=== PATIENT | female | born 1970 | race Asian ===

== ENCOUNTER 2017-10-26 10:01 | Outpatient (CLI) | payer OTHER | END 2017-10-26 10:02 | disposition home or self-care (01) | LOC: DTY/OP 10:01 | PROVIDERS: ATTEND Surgery | DX: E66.01 Morbid (severe) obesity due to excess calories (principal); E11.9 Type 2 diabetes mellitus without complications; G47.30 Sleep apnea, unspecified; Z98.84 Bariatric surgery status | CPT/HCPCS: 97802 ==

== ENCOUNTER 2017-10-28 15:52 | Outpatient (CLI) | payer OTHER | END 2017-10-28 15:53 | disposition home or self-care (01) | LOC: BICMAMMO 15:52 | PROVIDERS: ATTEND Family Medicine | DX: Z12.31 Encounter for screening mammogram for malignant neoplasm of breast (principal) | CPT/HCPCS: 77063; 77067 ==

== ENCOUNTER 2018-01-07 10:29 | Outpatient (CLI) | payer OTHER | END 2018-01-07 10:30 | disposition home or self-care (01) | LOC: LABBT 10:29 | PROVIDERS: ATTEND Surgery | DX: Z01.818 Encounter for other preprocedural examination (principal); E66.01 Morbid (severe) obesity due to excess calories | CPT/HCPCS: 93005; 93010 ==

== ENCOUNTER 2018-01-07 10:30 | Inpatient (IN) | payer OTHER ==
[2018-01-07 10:58] VITALS: BMI 38.5
[2018-01-12] MEDS ORDERED: Midazolam HCl 2 mg/2 ml Vial ONE ×2 (11:57→12:13)
[2018-01-12] MEDS ORDERED: Bupivacaine/Epinephrine 0.25% 30 ML VIAL ONE ×2 (12:01→12:15)
[2018-01-12] MEDS ORDERED: Fentanyl 250 MCG/5 ML VIAL ONE (12:13)
[2018-01-12] MEDS ORDERED: CEFAZOLIN/Water 2 GM/20 ML SYRINGE ONE (12:17)
[2018-01-12] MEDS ORDERED: Ondansetron HCl/PF 4 MG/2 ML Vial IVP PRN ×3 (13:42→16:19)
[2018-01-12] MEDS ORDERED: HYDROmorphone 2 MG/ML VIAL SLOW IVP PRN (13:42)
[2018-01-12] MEDS ORDERED: Ketorolac Tromethamine 30 MG/ML VIAL IVP PRN (13:42)
[2018-01-12] MEDS ORDERED: Promethazine HCl 25 MG/ML VIAL SLOW IVP PRN (13:42)
[2018-01-12] MEDS ORDERED: Promethazine HCl 25 MG/ML VIAL IM PRN ×3 (13:42→16:19)
[2018-01-12] MEDS ORDERED: Fentanyl 100 MCG/2 ML VIAL ONE (14:26)
[2018-01-12] MEDS ORDERED: Ketorolac Tromethamine 30 MG/ML VIAL ONE (14:26)
[2018-01-12] MEDS ORDERED: fentaNYL Citrate/PF 2,000 MCG in Sodium Chloride 0.9% 60 ML IV PRN (14:49)
[2018-01-12] MEDS ORDERED: diphenhydrAMINE 25 MG CAP PO PRN (14:49)
[2018-01-12] MEDS ORDERED: Naloxone HCl 0.4 mg/ml Vial IV PRN (14:49)
[2018-01-12] MEDS ORDERED: diphenhydrAMINE 50 MG/ML VIAL IM PRN (14:49)
[2018-01-12] MEDS ORDERED: Zolpidem Tartrate 5 MG TAB PO PRN (14:49)
[2018-01-12] MEDS ORDERED: diphenhydrAMINE 50 MG/ML VIAL IVP PRN ×2 (14:49→16:19)
[2018-01-12] MEDS ORDERED: Communication Order-Pharmacy FS SCH (15:00)
[2018-01-12] MEDS ORDERED: hydrALAZINE 20 MG/ML VIAL SLOW IVP PRN (16:19)
[2018-01-12] MEDS ORDERED: Dextrose 5% in Water 1,000 ML IV PRN (16:19)
[2018-01-12] MEDS ORDERED: Acetaminophen 1,000 MG in Premix Bag 1 BAG IVPB SCH (16:19)
[2018-01-12] MEDS ORDERED: Hydrocodone-Acetamin 15 ML UDCUP PO PRN (16:19)
[2018-01-12] MEDS ORDERED: Dextrose 50% Abboject 50 ML SYRINGE SLOW IVP PRN (16:19)
--- NOTE | 2018-01-12 16:41 | OP ---
DATE OF PROCEDURE: 01/12/2018 PREOPERATIVE DIAGNOSIS: 1. Morbid obesity with a body mass index of 38 2. Sleep apnea. POSTOPERATIVE DIAGNOSIS: 1. Morbid obesity with a body mass index of 38 2. Sleep apnea. PROCEDURE: Laparoscopic sleeve gastrectomy with Dawn staple line reinforcements and 38-[place] bougie . SURGEON: Dr. Buckley. ANESTHESIA: General. ESTIMATED BLOOD LOSS: 50 mL. COMPLICATIONS: None. FINDINGS: Normal postoperative EGD. PROCEDURE IN DETAIL: The patient was taken to the operating room and placed supine on the table. Af ter general anesthetic was obtained, the arms and legs are double strapped to bariatric table. OG tu be was used to decompress the stomach. Abdomen was prepped and draped in a sterile fashion. Left pinedo bcostal 5-mm Optiview trocar was placed in the usual fashion without injury and high flow pneumoperit oneum was obtained. Left and right abdominal 12-mm ports as well as a right subcostal 5-mm port were placed under direct visualization. A 5 mm incision was made at the xiphoid and the Nathansen's used to raise the liver off the GE junction. Short gastrics are taken down from mid body of stomach to t he left chase of the diaphragm using the LigaSure. They were taken down to a distance of 6 cm proxima l to the pylorus. The posterior fundus, angle of His and left chase completely dissected. There were some adhesions in this area from previous lap band. There were some adhesions on the anterior surfa ce of the stomach as well that were taken down and the stomach was taken down off the liver. The gas trohepatic ligament was opened to reveal no obvious hiatal hernia. OG tube was removed and a 38-Fren ch bougie was brought in and its tip left in the antrum of the stomach. Multiple loads of an [place] stapling device with Dawn staple line reinforcements were used to form the sleeve. The first was a green load fired up at a distance of 6 cm proximal to the pylorus angled up towards the incisura. Ca re was taken to avoid being too close to the incisura. Multiple loads were then fired up along the b ougie. Stomach was completely transected near the angle of His. Care was taken to avoid the lateral aspect of the GE junction. Stomach is removed from the left abdominal incision. This fascial defec t is closed using GraNee needle and 0 Vicryl tie. There is no bleeding in the left upper quadrant. A few areas on the staple line are clipped using laparoscopic clip device. The bougie was removed. EGD is brought down through the esophagus, stomach, to the level of duodenum without obstruction. Th ere was no stricture at the incisura. There is no involvement of the staple line at the GE junction. There is no evidence of air leakage or internal bleeding along the staple line. EGD scope was used to decompress the stomach, it was pulled and removed. Nathansen retractor was removed under direct visualization without bleeding. Pneumo-insufflation is let down. All ports are removed under direct visualization without bleeding. Vicryl was used to close the fascial defect from the left abdominal incisions. All incisions are irrigated and closed using 4-0 Monocryl and Dermabond. The patient wa s en route to recovery in stable condition. All instrument counts, needle counts, lap counts were co rrect.
[2018-01-12] MEDS: D5 1/2 NS w/20 mEq KCL 1,000 ML IV SCH (17:17)
[2018-01-12] MEDS: Acetaminophen 1,000 MG in Premix Bag 1 BAG IVPB SCH (20:23)
[2018-01-13] MEDS: Ketorolac Tromethamine 30 MG/ML VIAL IVP PRN ×2 (01:35→08:29)
[2018-01-13] MEDS: D5 1/2 NS w/20 mEq KCL 1,000 ML IV SCH ×2 (01:35→09:57)
[2018-01-13] MEDS ORDERED: Clopidogrel Bisulfate 75 MG TAB ONE (03:49)
[2018-01-13] MEDS: Acetaminophen 1,000 MG in Premix Bag 1 BAG IVPB SCH ×2 (03:53→09:57)
[2018-01-13 05:36] LABS: #Lymphocytes 1.5 thou/uL (1.20-3.40); #Monocytes 0.8 thou/uL (0.11-0.59); #Neutrophils 8.7 thou/uL (1.40-6.50); %Eosinophils 0.3 % (0.0-10.0); %Lymphocytes 13.7 % (21.0-51.0); %Monocytes 6.9 % (0.0-10.0); %Neutrophils 79.1 % (42.0-75.0); Hemoglobin 11.5 g/dL (12.0-16.0); Mean Corpuscular HGB CONC 33.4 g/dL (32.0-36.0); Mean Corpuscular Volume 89.7 fL (78.0-98.0); Mean Platelet Volume 7.8 fL (7.4-10.4); Platelet Count 314 thou/uL (130-400); RBC Distribution Width 12.6 % (11.5-14.5); Red Blood Cell (RBC) Count 3.84 mill/uL (4.20-5.40)
[2018-01-13 05:42] LABS: Anion Gap 11 mmol/L (10-20); BUN (Urea Nitrogen) 10 mg/dL (7.0-18.7); Calc. Creatinine Clearance 163 mL/min (70-130); Calcium 8.6 mg/dL (7.8-10.44); Carbon Dioxide 25 mmol/L (22-29); Chloride 105 mmol/L (98-107); Estimated GFR-MDRD 78; Glucose 97 mg/dL (70-105); Sodium 137 mmol/L (136-145)
[2018-01-13 07:53] VITALS: BP 121/73; TEMP 98
[2018-01-13] MEDS ORDERED: Enoxaparin Sodium 40 MG/0.4 ML SYRINGE SC SCH (09:00)
[2018-01-13] MEDS ORDERED: Pantoprazole 40 MG VIAL IVP SCH (09:00)
--- NOTE | 2018-01-13 17:23 | DIS ---
DATE OF ADMISSION: 01/12/2018 DATE OF DISCHARGE: 01/13/2018 ADMIT DIAGNOSIS: Morbid obesity. DISCHARGE DIAGNOSIS: Morbid obesity. PROCEDURE: Laparoscopic sleeve gastrectomy by Dr. Buckley without complication. CONDITION AT DISCHARGE: Improved. STAFF: Dr. Buckley. HOSPITAL COURSE: Postop day #1, the patient is tolerating the clear liquid diet. She is discharged home. She will follow up with me in 2 weeks.
== END 2018-01-13 10:59 | disposition home or self-care (01) | DRG 621 ==
LOC: SURG A 01-12 10:13
PROVIDERS: ADMIT Surgery; ATTEND Surgery
PROC: 0DB64Z3 Excision of Stomach, Percutaneous Endoscopic Approach, Vertical (ICD-10-PCS; principal; 2018-01-12)
DX: E66.01 Morbid (severe) obesity due to excess calories (principal); Z68.38 Body mass index [BMI] 38.0-38.9, adult; G47.30 Sleep apnea, unspecified
CPT/HCPCS: 36415; 36416; 80048; 85025; 88307; 88312; 94760; 96374; C9113; J0131; J1650; J1885; J2250; J3010; J7050

== ENCOUNTER 2018-10-05 13:25 | Outpatient (CLI) | payer OTHER | END 2018-10-05 13:26 | disposition home or self-care (01) | LOC: ULT 13:25 | PROVIDERS: ATTEND Family Medicine | DX: R00.2 Palpitations (principal); I08.8 Other rheumatic multiple valve diseases | CPT/HCPCS: 93306 ==

== ENCOUNTER 2019-10-31 08:34 | Outpatient (CLI) | payer OTHER ==
--- NOTE | 2019-10-31 08:54 | MMO ---
Bilateral MAMMO Bilat Screen [facility]. CLINICAL HISTORY: Patient is 49 years old and is seen for screening. The patient has no family history of breast cancer. The patient has no personal history of cancer. VIEWS: The views performed were: bilateral craniocaudal with tomosynthesis and bilateral mediolateral oblique with tomosynthesis. FILMS COMPARED: The present examination has been compared to a prior imaging study performed at [facility] on 10/28/2017. This study has been interpreted with the assistance of computer-aided detection. MAMMOGRAM FINDINGS: There are scattered fibroglandular densities. There are no suspicious masses, suspicious calcifications, or new areas of architectural distortion. IMPRESSION: THERE IS NO MAMMOGRAPHIC EVIDENCE OF MALIGNANCY. A ROUTINE FOLLOW-UP MAMMOGRAM IN 1 YEAR IS RECOMMENDED. THE RESULTS OF THIS EXAM WERE SENT TO THE PATIENT. ACR BI-RADS Category 1 - Negative MAMMOGRAPHY NOTE: 1. A negative mammogram report should not delay a biopsy if a dominant of clinically suspicious mass is present. 2. Approximately 10% to 15% of breast cancers are not detected by mammography. 3. Adenosis and dense breasts may obscure an underlying neoplasm. Reported by: VANNESSA POLK MD Electonically Signed: [id number]
== END 2019-10-31 08:35 | disposition home or self-care (01) ==
LOC: BICMAMMO 08:34
PROVIDERS: ATTEND Family Medicine
DX: Z12.31 Encounter for screening mammogram for malignant neoplasm of breast (principal)
CPT/HCPCS: 77063; 77067

== ENCOUNTER 2022-12-29 12:37 | Outpatient (CLI) | payer BC | END 2022-12-29 12:38 | disposition home or self-care (01) | LOC: BICMAMMO 12:37 | PROVIDERS: ATTEND Student in an Organized Health Care Education/Training Program | DX: Z12.31 Encounter for screening mammogram for malignant neoplasm of breast (principal) | CPT/HCPCS: 77063; 77067 ==